=== PATIENT | male | born 1985 | race Caucasian/White ===

== ENCOUNTER → 2020-08-20 | Outpatient (CLI) | payer BC ==
--- NOTE | 2020-08-20 12:10 | CT ---
EXAMINATION TYPE: CT angio chest DATE OF EXAM: 08/20/2020 COMPARISON: None HISTORY: Anterior chest wall pain CT DLP: 489.4 mGycm Automated exposure control for dose reduction was used. CONTRAST: CTA scan of the thorax is performed with IV Contrast, patient injected with 100 mL of Isovue 370, pul monary embolism protocol. MIP images are created and reviewed. 3D reconstructed images are created on an independent workstation and reviewed. FINDINGS: LUNGS: The lungs are grossly clear, there is no concerning parenchymal mass or nodule identified. T here is no pleural effusion or pneumothorax seen. The tracheobronchial tree is patent. AORTA: No additional significant abnormality is seen. MEDIASTINUM: There is satisfactory enhancement of the pulmonary artery and its branches, there is no CT evidence for pulmonary embolism. There are no greater than 1 cm hilar or mediastinal lymph nodes. No pericardial effusion is seen. OTHER: Question changes of gynecomastia bilaterally. IMPRESSION: NONSPECIFIC FINDINGS DESCRIBED ABOVE. CORRELATE FOR GYNECOMASTIA.
--- NOTE | 2020-08-20 15:44 | ECHOS ---
STRESS ECHOCARDIOGRAM DATE OF SERVICE: 08/20/20 LUMASON: INDICATIONS: Chest pain MEDICATIONS: BASELINE HEART RATE: 58 BASELINE BLOOD PRESSURE: 134/87 MAXIMUM HEART RATE: 168 MAXIMUM BLOOD PRESSURE: 196/66 85% MPHR: 159 100% MPHR: 187 METS: 10.9 MAXIMUM STAGE REACHED: 3 TOTAL EXERCISE TIME: 9:30 CLINICAL INFORMATION: Baseline rhythm is sinus mechanism, rate 58, normal axis and intervals. Normal electrocardiogram. Patient with blood pressure 134/87 mmHg. Patient exercised on Zach protocol for 9 minutes 30 seconds reaching peak rate 168 beats per minute which is equal to 90% maximum predicted heart rate. Peak blood pressure 196/66 mmHg. Test was terminated secondary to fatigue. There was no chest pain. Electrocardiograph monitoring revealed no evidence of diagnostic ischemic ST deviation. Rare PVCs were noted. Baseline echocardiogram revealed normal wall motion. At peak exercise, there was normal wall motion augmentation with no hypokinesis or dyskinesis. CONCLUSION: 1. Average exercise tolerance with normal electrocardiograph response to exercise. 2. Normal stress echocardiogram with no evidence of stress-induced ischemia. MMODL / IJN: [id number] /
== END | disposition home or self-care (01) ==
LOC: RADCTMAIN 09:22
PROVIDERS: ATTEND Family Medicine
DX: R07.89 Other chest pain (principal)
CPT/HCPCS: 93351; 71275; Q9967